=== PATIENT | female | born 1955 | race Caucasian/White ===

== ENCOUNTER 2022-10-24 16:45 | Emergency (ER) | payer OTHER ==
[~2022-10-24] VITALS: Ht 157.5 cm; Wt 78.9 kg
--- NOTE | 2022-10-24 16:51 | NUR ---
Placed in room 01 . Placed on pvc monitor, blood pressure machine and pulse oximeter. To gown for exam. Side rails up. Report given to Tj MONTOYA .
[2022-10-24 16:52] VITALS: BP_SYST 126
--- NOTE | 2022-10-24 17:04 | NUR ---
PT BIB BLS FROM DIALYSIS OFFICE C/O OF LIGHT HEADEDNESS. PT STATE WAS AT THE DIALYSIS OFFICE WITH DAUGHTER WHEN SHE FELT LIGHT HEADED. PT HAS DIALYSIS M/W/FR. PT NOW HAS CHEST PORT. PT STATES HAD A PROBLEM WITH PERITONEAL DIALYSIS. PT DENIES PAIN. PT HX OF ESRD AND FIBROSIS. PT AAO X4. PT RESTING IN BED WITH RAILS UP VSS.
[2022-10-24 17:24] LABS: BASOPHILS # (AUTO) 0.1 K/uL (0.0-0.2); BASOPHILS % (AUTO) 0.8 % (0.0-2.0); EOSINOPHILS # (AUTO) 0.3 K/uL (0.0-0.4); EOSINOPHILS % (AUTO) 3.6 % (0.0-4.0); HEMATOCRIT 26.9 % (36-48); HEMOGLOBIN 9.2 g/dL (12.0-16.0); LYMPHOCYTES # (AUTO) 1.1 K/uL (1.0-5.5); LYMPHOCYTES % (AUTO) 15.3 % (20.5-51.5); MEAN CORPUSCULAR HEMOGLOBIN 34 pg (27-31); MEAN CORPUSCULAR HGB CONC 34 % (32-36); MEAN CORPUSCULAR VOLUME 101 fL (79.0-98.0); MONOCYTES # (AUTO) 0.6 K/uL (0.0-1.0); MONOCYTES % (AUTO) 7.5 % (1.7-9.3); NEUTROPHILS # (AUTO) 5.4 K/uL (1.8-7.7); NEUTROPHILS % (AUTO) 72.8 % (40.0-70.0); PLATELET COUNT (AUTO) 169 K/uL (130-430); RED BLOOD CELL COUNT(AUTO) 2.67 MIL/uL (4.2-6.2); RED CELL DISTRIBUTION WIDTH 17.1 % (9.0-15.0); WHITE BLOOD COUNT (AUTO) 7.5 K/uL (4.8-10.8)
[2022-10-24 17:48] LABS: ALBUMIN 1.8 g/dL (3.4-4.8); ANION GAP 4 (5-15); ASPARTATE AMINOTRANSFERASE 18 U/L (10-37); CALCIUM 7.9 mg/dL (8.4-11.0); CHLORIDE 94 mmol/L (98-107); CREATININE 5.23 mg/dL (0.55-1.30); GFR AFRICAN AMERICAN 10 mL/min (>90); GLUCOSE 108 mg/dL (70-99); TOTAL BILIRUBIN 0.5 mg/dL (0.0-1.0); UREA NITROGEN, BLOOD 16 mg/dL (8-21)
[2022-10-24 18:04] LABS: ALANINE AMINOTRANSFERASE 6 U/L (12-78); INR 1.2 (0.8-1.2); PROTHROMBIN TIME 11.9 SECS (9.5-12.5)
--- NOTE | 2022-10-24 19:37 | NUR ---
Dr. Chin at bedside examining the patient.
[2022-10-24 20:29] VITALS: BP_SYST 133
--- NOTE | 2022-10-24 20:30 | NUR ---
Patient given written and verbal discharge instructions and verbalizes understanding. ER MD discussed with patient the results and treatment provided. Patient in stable condition. ID arm band removed. NO Rx given. Patient educated on pain management and to follow up with PMD. Pain Scale 0/10. Opportunity for questions provided and answered. Medication side effect fact sheet provided.
== END 2022-10-24 20:29 | disposition home or self-care (01) ==
LOC: SED 16:45
DX: R55 Syncope and collapse (principal); Z79.899 Other long term (current) drug therapy
CPT/HCPCS: 36415; 70450-TC; 71045; 76376; 80053; 83605; 84484; 85025; 85610-TC; 85730-TC; 93005; 99285